=== PATIENT | female | born 1985 | race Caucasian/White ===

== ENCOUNTER 2017-11-03 17:37 | Emergency (ER) | payer OTHER ==
[~2017-11-03] VITALS: Ht 172.7 cm; Wt 122.5 kg
[~2017-11-03 17:37] MED LIST: IBUPROFEN800 MG PO
[2017-11-03] MEDS ORDERED: BUPRENORPHINE HC8 MG SL (17:54)
[2017-11-03] MEDS ORDERED: ONDANSETRON ODT8 MG PO (19:22)
== END 2017-11-03 19:46 | disposition home or self-care (01) ==
LOC: ED 17:37
DX: G43.909 Migraine, unspecified, not intractable, without status migrainosus (principal); F17.200 Nicotine dependence, unspecified, uncomplicated; Z88.8 Allergy status to other drugs, medicaments and biological substances
CPT/HCPCS: 80053; 84703; 85025; 96361; 96374; 96375; 99283; J1200; J1885; J2405; J7030

== ENCOUNTER 2023-03-15 17:52 | Emergency (ER) | payer OTHER ==
[~2023-03-15] VITALS: Ht 172.7 cm; Wt 108.0 kg
[~2023-03-15 17:52] MED LIST changes: +BUPRENORPHINE HC8 MG SL; +ONDANSETRON ODT8 MG PO
[2023-03-15 22:37] LABS: BILIRUBIN, URINE NEGATIVE (negative); BLOOD/HGB, URINE NEGATIVE (Negative); KETONE, URINE NEGATIVE (Negative); LEUK ESTERASE, URINE NEGATIVE (negative); NITRITE, URINE POSITIVE (negative)
[2023-03-15 22:42] LABS: BACTERIA, URINE 4+ /hpf (negative); CASTS, URINE NONE SEEN \\lpf; CRYSTALS, URINE NONE SEEN (0-1+); EPITHELIAL CELLS, URINE SQUAMOUS 2+ /lpf (0-1+); RED BLOOD CELLS, URINE 0-1 /hpf (0-5)
[2023-03-15 22:43] LABS: REFLEX CULTURE, URINE No (No)
[2023-03-15 22:56] LABS: BASOPHILS 0.6 % (0-2); EOSINOPHILS 2.9 % (0-6); HEMATOCRIT 39.2 % (35.0-50.0); HEMOGLOBIN 12.7 g/dL (12.0-18.0); LYMPHOCYTES 27.1 % (24-44); MCH 28.2 (27-36); MCHC 32.5 g/dl (30-36); MCV 86.8 fl (81-99); MONOCYTES 6.2 % (0-12); NEUTROPHILS 63.2 % (39-80); PLATELET COUNT 348 K/uL (140-440); RBC 4.51 M/ul (4.3-5.7); RDW 14.7 (10.5-15.0)
[2023-03-15 23:13] LABS: ALBUMIN 3.7 g/dL (3.4-5.0); ANION GAP 10.1 (7-21); BILIRUBIN, TOTAL 0.2 ng/dL (0.2-1.0); BUN/CREATININE RATIO 14.92 (6.0-28.6); CALCIUM 9.2 mg/dL (8.5-10.1); CREATININE, SERUM 0.67 mg/dL (0.55-1.02); POTASSIUM 4.1 mmol/L (3.5-5.1); PROTEIN, TOTAL 7.4 g/dL (6.4-8.2)
[2023-03-16] MEDS ORDERED: MACROBID 100 M100 MG PO (00:21)
[2023-03-16] MEDS ORDERED: ANUSOL-HC25 MG PR (00:21)
[2023-03-16 00:36] VITALS: BP 139/76
== END 2023-03-16 00:36 | disposition home or self-care (01) ==
LOC: ED 17:52
PROVIDERS: Family Medicine
DX: N39.0 Urinary tract infection, site not specified (principal); K80.20 Calculus of gallbladder without cholecystitis without obstruction; F17.200 Nicotine dependence, unspecified, uncomplicated; Z88.5 Allergy status to narcotic agent
CPT/HCPCS: 36415; 74177; 80053; 81001; 84703; 85025; 96375; 99284-25; A9270; J1885; J2405; J7030; Q9967

== ENCOUNTER 2023-11-24 12:48 | Emergency (ER) | payer OTHER ==
[~2023-11-24] VITALS: Ht 172.7 cm; Wt 109.4 kg
[~2023-11-24 12:48] MED LIST changes: +ANUSOL-HC25 MG PR; +DICYCLOMINE HCL20 MG PO; +KRISTALOSE10 GM PO; +MACROBID 100 M100 MG PO
[2023-11-24 13:58] LABS: BASOPHILS 0.4 % (0-2); EOSINOPHILS 2.4 % (0-6); HEMATOCRIT 38.2 % (35.0-50.0); HEMOGLOBIN 12.7 g/dL (12.0-18.0); LYMPHOCYTES 22.9 % (24-44); MCH 28.3 (27-36); MCHC 33.1 g/dl (30-36); MCV 85.3 fl (81-99); MONOCYTES 6.3 % (0-12); PLATELET COUNT 315 K/uL (140-440); RBC 4.48 M/ul (4.3-5.7); RDW 13.2 (10.5-15.0)
[2023-11-24 14:18] LABS: ALBUMIN 3.7 g/dL (3.4-5.0); ALBUMIN/GLOBULIN RATIO 0.97 (1.1-2.4); BILIRUBIN, TOTAL 0.5 ng/dL (0.2-1.0); BUN/CREATININE RATIO 15.58 (6.0-28.6); CALCIUM 8.6 mg/dL (8.5-10.1); CREATININE, SERUM 0.77 mg/dL (0.55-1.02); PROTEIN, TOTAL 7.5 g/dL (6.4-8.2)
[2023-11-24 14:21] VITALS: BP 154/99
== END 2023-11-24 14:21 | disposition other institution, planned readmission (95) ==
LOC: ED 12:48
PROVIDERS: Emergency Medicine
DX: R10.12 Left upper quadrant pain (principal); F17.200 Nicotine dependence, unspecified, uncomplicated; Z88.5 Allergy status to narcotic agent
CPT/HCPCS: 36415; 80053; 83690; 84703; 85025; 99284

== ENCOUNTER 2024-04-23 10:26 | Emergency (ER) | payer OTHER ==
[~2024-04-23] VITALS: Ht 172.7 cm; Wt 104.5 kg
[2024-04-23] MEDS ORDERED: HYDROmorphone HCL 1 MG/ML SYR IV ONE (11:15)
[2024-04-23] MEDS ORDERED: LORazepam 2 MG/ML VIAL IV ONE (11:15)
[2024-04-23] MEDS ORDERED: ondansetron HCL 4 MG/2 ML VIAL IV ONE (11:15)
[2024-04-23] MEDS ORDERED: PANTOPRAZOLE SODIUM 40 MG/10 ML VIAL IV ONE (11:15)
[2024-04-23] MEDS ORDERED: SODIUM CHLORIDE 0.9% 1,000 ML IV ONE (11:15)
[2024-04-23 11:57] LABS: HEMOGLOBIN 14.2 g/dL (12.0-18.0); MCH 28.6 (27-36); MCHC 32.9 g/dl (30-36); MCV 86.9 fl (81-99); PLATELET COUNT 432 K/uL (140-440); RBC 4.95 M/ul (4.3-5.7); RDW 13.7 (10.5-15.0)
[2024-04-23 12:10] LABS: LYMPHOCYTES, MANUAL DIFF 10; MONOCYTES, MANUAL DIFF 11; NEUTROPHILS, MANUAL DIFF 79
[2024-04-23 12:12] LABS: ALBUMIN 3.7 g/dL (3.4-5.0); ALBUMIN/GLOBULIN RATIO 0.88 (1.1-2.4); ALCOHOL, MEDICAL <3 ng/dL (<3); ALKALINE PHOSPHATASE 79 U/L (46-116); ALT (SGPT) 46 U/L (14-59); ANION GAP 11.9 (7-21); AST (SGOT) 20 U/L (15-37); BILIRUBIN, TOTAL 0.4 ng/dL (0.2-1.0); BUN/CREATININE RATIO 20.73 (6.0-28.6); CALCIUM 9.3 mg/dL (8.5-10.1); CARBON DIOXIDE 28 mmol/L (21-32); CHLORIDE 103 mmol/L (98-107); CREATININE, SERUM 0.82 mg/dL (0.55-1.02); GLOMERULAR FILTRATION RATE,EST 93 mL/min (>60); POTASSIUM 3.9 mmol/L (3.5-5.1); PROTEIN, TOTAL 7.9 g/dL (6.4-8.2); UREA NITROGEN 17 mg/dL (7-18)
[2024-04-23 13:12] LABS: BILIRUBIN, URINE NEGATIVE (negative); BLOOD/HGB, URINE NEGATIVE (Negative); KETONE, URINE NEGATIVE (Negative); LEUK ESTERASE, URINE NEGATIVE (negative); NITRITE, URINE POSITIVE (negative)
[2024-04-23 13:19] LABS: BACTERIA, URINE 4+ /hpf (negative); EPITHELIAL CELLS, URINE SQUAMOUS 1+ /lpf (0-1+); RED BLOOD CELLS, URINE 0-1 /hpf (0-5); WHITE BLOOD CELLS, URINE 0-1 /HPF (0-5)
[2024-04-23 13:20] LABS: REFLEX CULTURE, URINE Yes (No)
[2024-04-23 13:39] LABS: AMPHETAMINES, URINE POSITIVE (NEGATIVE); BARBITURATES, URINE NEGATIVE (NEGATIVE); BENZODIAZEPINE, URINE NEGATIVE (NEGATIVE); BUPRENORPHINE, URINE NEGATIVE (NEGATIVE); CANNABINOID, URINE NEGATIVE (NEGATIVE); COCAINE, URINE NEGATIVE (NEGATIVE); ECSTASY, URINE POSITIVE (NEGATIVE); FENTANYL, URINE NEGATIVE (NEGATIVE); METHADONE, URINE NEGATIVE (NEGATIVE); OPIATES, URINE NEGATIVE (NEGATIVE); OXYCODONE, URINE NEGATIVE (NEGATIVE); PHENCYCLIDINE, URINE NEGATIVE (NEGATIVE)
[2024-04-23] MEDS ORDERED: CEFDINIR 300 MG CAP PO ONE (15:00)
[2024-04-23] MEDS ORDERED: CEFDINIR300 MG PO (16:36)
[2024-04-23 16:40] VITALS: BP 120/65
== END 2024-04-23 16:50 | disposition home or self-care (01) ==
LOC: ED 10:26
PROVIDERS: Emergency Medicine
DX: N39.0 Urinary tract infection, site not specified (principal); F17.200 Nicotine dependence, unspecified, uncomplicated; Z88.5 Allergy status to narcotic agent
CPT/HCPCS: 36415; 74176; 80053; 80307; 81001; 83690; 84703; 85025; 87088; 87186; 99284-25; G0480; J1171; J2060; J2405; J7030

== ENCOUNTER 2025-03-23 07:44 | Emergency (ER) | payer OTHER ==
[~2025-03-23] VITALS: Ht 172.7 cm; Wt 123.9 kg
[~2025-03-23 07:44] MED LIST changes: +CEFDINIR300 MG PO
[2025-03-23] MEDS ORDERED: HYDROCODON-ACE1 EA10 PO (09:10)
[2025-03-23 09:30] VITALS: BP 119/65
== END 2025-03-23 09:30 | disposition home or self-care (01) ==
LOC: ED 07:44
DX: S82.842A Displaced bimalleolar fracture of left lower leg, initial encounter for closed fracture (principal); W18.30XA Fall on same level, unspecified, initial encounter; J45.909 Unspecified asthma, uncomplicated; F17.200 Nicotine dependence, unspecified, uncomplicated; Z88.5 Allergy status to narcotic agent
CPT/HCPCS: 29515; 73610; 99283

== ENCOUNTER 2025-04-08 11:26 | Day surgery (SDC) | payer OTHER ==
[~2025-04-08] VITALS: Ht 172.7 cm; Wt 90.9 kg
[~2025-04-08 11:26] MED LIST changes: +CEFAZOLIN SODIUM 2 GM in SODIUM CHLORIDE 0.9% 100 ML IV SCH; +HYDROCODON-ACE1 EA10 PO; +IBLOOD GLUCOSE TEST STRIP 1 EA TEST VI PRN; +LACTATED RINGER'S 1,000 ML IV SCH; +LIDOCAINE HCL 1% 5 ML SDV INJ ONE
[2025-04-08] MEDS ORDERED: DEXAMETHASONE SOD PHOS 10 MG/ML VIAL ONE ×2 (11:35→14:57)
[2025-04-08 11:36] VITALS: BP 136/73
[2025-04-08] MEDS ORDERED: LIDOCAINE HCL 2% 5 ML SDV ONE ×3 (11:38→14:56)
--- NOTE | 2025-04-08 11:57 | NUR ---
KADIE MCGRAW WITH PT.
[2025-04-08] MEDS ORDERED: fentaNYL citrate 100 MCG/2 ML VIAL ONE (12:36)
[2025-04-08] MEDS ORDERED: SEVOFLURANE 250 ML BTL INH ONE (12:59)
--- NOTE | 2025-04-08 13:16 | NUR ---
1210 URINE HAS BEEN COLLECTED SURGEON CHIEF IN TO TALK WITH PT ANDDO BLOCKS SEE ANESTHESIA RECORD.
[2025-04-08] MEDS ORDERED: IBLOOD GLUCOSE TEST STRIP 1 EA TEST VI PRN (14:15)
[2025-04-08] MEDS ORDERED: HYDROmorphone HCL 1 MG/ML SYR IV PRN (14:15)
[2025-04-08] MEDS ORDERED: NALOXONE HCL 0.4 MG SYR IV PRN (14:15)
[2025-04-08] MEDS ORDERED: PROCHLORPERAZINE EDISYLATE 10 MG/2 ML VIAL IV PRN (14:15)
[2025-04-08] MEDS ORDERED: fentaNYL citrate 50 MCG/ML SDV IV PRN (14:15)
[2025-04-08] MEDS ORDERED: DEXAMETHASONE SOD PHOS 4 MG/ML VIAL ONE (14:19)
[2025-04-08] MEDS ORDERED: OXYCODONE HCL5 M1 PO (14:27)
[2025-04-08] MEDS ORDERED: DICLOFENAC SODI75 MG PO (14:27)
[2025-04-08] MEDS ORDERED: OXYCODONE HCL 5 MG TAB PO PRN (14:30)
[2025-04-08] MEDS ORDERED: Ropivacaine HCl 0.5% 30 ML VIAL ONE (14:56)
[2025-04-08] MEDS ORDERED: SODIUM CHLORIDE 0.9% 20 ML IV ONE (14:56)
[2025-04-08 15:29] VITALS: BP 145/75
--- NOTE | 2025-04-08 15:44 | NUR ---
ON RETURN TO ROOM CALL LIGHT GIVEN, MOM AT BEDSIDE. TRIAL OFF 02 SAT 93% ON ROOM AIR. OFF.
--- NOTE | 2025-04-08 16:09 | NUR ---
04/08/25 160Clarissa Graves 1424- PT ARRIVES TO PACU, SEMI GUZMAN POSITION, NON REACTIVE TO STIMULUS. OPA IN PLACE, BREATHING EVEN AND NON LABORED, O2 AT 6L PER MASK. LR INFUSING TO RH IV. ABD SOFT, NON DISTENDED. DRESSING AND BOOT TO LEFT FOOT, FOOT WARM AND PULSES INTACT. ALL MONITORS IN PLACE. 1431- PT WAKES ON OWN, MOVING AROUND IN BED WITH EYES CLOSED, TEETH CLENCHED ON OPA. MULTIPLE ATTEMPTS TO REORIENT PT, PT FINALLY OPENED EYES, AND OPA REMOVED. PT CONTINUES TO MOVE AROUND IT BED, STATING "IT HURTS, IT HURTS". 1433- PT RUBBING AT MASK AND CATCHING MONITORS ON MASK, MOVED TO ROOM AIR AT THIS TIME. PT ENCOURAGED TO TAKE SLOW, DEEP BREATHS. 1438- Antonietta TRENT SECOND GRADE TEACHER CALLED IN TO ASSIST WITH PT PAIN. PT C/O MEDIAL ASPECT OF ANKLE UP TO KNEE FEELING IF ON FIRE. PT IS MOVING AROUND IN BED. BOOT REMOVED AND REPOSITIONED FOOT IS PLANTAR FLEXED AND HEEL IS NOT IN THE BACK OF THE BOOT. THERE IS ICE PLACED TO LEFT ANKLE. SECOND GRADE TEACHER TO REBLOCK PT. 1441- FENTANYL 50 MCG GIVEN. PT STARTING TO C/O NAUSEA DUE TO PAIN. 1444- ZOFRAN 4 MG GIVEN AT THIS TIME. 1455- PT REPORTS NAUSEA IMPROVED, NO CHANGE IN PAIN. 2ND DOSE OF FENTANYL 50 MCG GIVEN AT THIS TIME. 1507- Antonietta TRENT SECOND GRADE TEACHER AT BEDSIDE TO PLACE BLOCK, PT REPORTS FENTANYL TOOK THE EDGE OFF, PT PREFERS NOT TO TAKE MORE PAIN MEDICATIONS. 1517- PT APPEARS MORE COMFORTABLE AFTER BLOCKS. BREATHING HAS SLOWED, PT AWAKE BUT DROWSY. O2 SATS DROP TO MID 80'S, O2 PLACED AT 2L PER NC TO ALLOW REST. PT RPEORTS PAIN IS 3-4/10 AT THIS TIME. 1528- PT TAKEN BACK TO DAY SURGERY, MOM IN ROOM. REPORT TO Queta NAJERA RN, CARE OF PT TURNED OVER AT THIS TIME.
[2025-04-08 16:25] VITALS: BP 135/66
--- NOTE | 2025-04-08 16:30 | NUR ---
RATES PAIN 3/10 DENIES NEED FOR PAIN MEDICINE. HAS EATEN CRACKERS AND PUDDING TAKING POP AND WATER. DENIES NEED TO VOID AT THIS TIME.
[2025-04-08 17:03] VITALS: BP 150/69
--- NOTE | 2025-04-08 17:04 | NUR ---
UP TO BSC VOIDS 100MLS DARK URINE. READY TO GO CALLING [facility] FOR [facility]. MOM WITH PT.
--- NOTE | 2025-04-08 17:17 | NUR ---
1700 REVIEWED DC INSTRUCTIONS AND COMPUTER PRINT OUT EDUCATION. STATES SHE UNDERSTANDS AND NO QUESTIONS ENC TO REREAD AT HOME. ICE PACK SENT WITH PT.
--- NOTE | 2025-04-08 17:18 | NUR ---
HAS CALLED [facility] FOR [facility].
[2025-04-08] MEDS ORDERED: DICLOFENAC SOD 75 MG TABEC PO SCH (21:00)
--- NOTE | 2025-04-09 08:20 | OR ---
[facility] [address] [place], [place] [address] Signed DATE OF OPERATION: 04/08/2025 SURGEON: Isacc Latham MD PREOPERATIVE DIAGNOSIS: Bimalleolar ankle fracture, left. POSTOPERATIVE DIAGNOSIS: Bimalleolar ankle fracture, left. PROCEDURE PERFORMED: Open reduction and internal fixation, left bimalleolar ankle fracture. CAR SALES ASSOCIATE: Charline Kang PA-C. Charline was present and critical for this procedure. ANESTHESIA: General. BLOOD LOSS: None. TOURNIQUET TIME: 43 minutes. IMPLANTS: A seven hole 1/3 tubular plate laterally, two 3.5 headless screws medially. BRIEF HISTORY: Crystal is a 39-year-old female who suffered a ground level fall, suffering a fracture of her ankle with displacement and instability. Risks and benefits of operative treatment were discussed with her and she elected to proceed. DESCRIPTION OF PROCEDURE: Once consent was obtained she was taken to the operating room. After adequate anesthesia she was placed on the OR table with a hip bump. The leg was then prepped and draped in a standard sterile fashion. Leg was exsanguinated using Esmarch bandage. Tourniquet inflated to 250 mmHg. Standard lateral approach to the lateral malleolus was undertaken, taken through skin and subcutaneous tissue. Skin flaps were developed medially and laterally. The periosteum was elevated off the fracture, which was then Electronically Signed By: ISACC LATHAM MD 04/09/25 0820 PATIENT NAME: EICCRYSTAL HUSAIN OPERATIVE REPORT DATE OF : 83 REPORT #: [id number] PHYSICIAN: ISACC LATHAM MD PCP: NO PRIMARY CARE PHYSICIAN REPORT IS CONFIDENTIAL AND NOT TO BE RELEASED WITHOUT AUTHORIZATION [facility] [address], [place] [address] Signed reduced and clamped. Once this was completed, a standard AO lag screw was placed from anterior to posterior. The seven hole plate was then curved to fit the lateral aspect of the fibula. This was then held in position using a single screw and checked with the image intensifier and found to be in good position. The remaining screw holes were drilled and appropriate length screws were placed. One locking screw and three 4.0 cancellous screws were placed. Her bone quality was quite poor. The wound was copiously irrigated with normal saline and closed in layers using 2-0 Monocryl followed by aidan. The medial side was then approached through a curvilinear incision carried through the skin, subcutaneous tissue and again down to the bone. The fracture was distracted and cleared of debris and reduced. This was then clamped and checked using image intensifier, which was found to be good. The guide wires for the 3.5 headless screws were then placed in the anterior and posterior portions of the fractured malleolus. These were then measured and two 40 screws were placed over the guidewires and advanced until they have fully seated inside the malleolus. Once this was completed, the guidewires were removed. Final radiographs showed good reduction and good placement of the hardware. The medial wound was again cleaned and irrigated using normal saline, closed with 2-0 Monocryl for the deep layers and aidan for the skin. Both wounds were dressed with Allevyn, 4x4s, and DUTCH wrap. She tolerated the procedure well. All sponge, needle, and instrument counts were correct. Isacc Latham MD BA/ANGELICAL /[id number] Copies: ~ Electronically Signed By: ISACC LATHAM MD 04/09/25 0820 PATIENT NAME: CRYSTAL KRISHNAMURTHY OPERATIVE REPORT DATE OF : 83 REPORT #: [id number] PHYSICIAN: ISACC LATHAM MD PCP: NO PRIMARY CARE PHYSICIAN REPORT IS CONFIDENTIAL AND NOT TO BE RELEASED WITHOUT AUTHORIZATION
== END 2025-04-08 17:00 | disposition home or self-care (01) ==
LOC: DS 11:26
PROVIDERS: ATTEND Specialist
PROC: 0QSH04Z Reposition Left Tibia with Internal Fixation Device, Open Approach (ICD-10-PCS; 2025-04-08)
PROC: 3E0T3BZ Introduction of Anesthetic Agent into Peripheral Nerves and Plexi, Percutaneous Approach (ICD-10-PCS; 2025-04-08)
PROC: 0QSK04Z Reposition Left Fibula with Internal Fixation Device, Open Approach (ICD-10-PCS; principal; 2025-04-08 14:00)
DX: S82.842A Displaced bimalleolar fracture of left lower leg, initial encounter for closed fracture (principal); S82.891A Other fracture of right lower leg, initial encounter for closed fracture; M25.372 Other instability, left ankle; W18.30XA Fall on same level, unspecified, initial encounter
CPT/HCPCS: 01480; 64447; 73600; 80307; 84703; C1713; C1769; J1100; J2003; J2405; J2704; J2795; J3010; J7121